=== PATIENT | female | born 1970 | race Caucasian/White ===

== ENCOUNTER 2016-04-17 19:21 | Emergency (ER) | payer SELFPAY ==
--- NOTE | 2016-04-17 20:09 | ED.PDOC ---
History of Present Illness - General Chief Complaint: Skin/Abrasion/Tear Stated Complaint: sore under her left arm Time Seen by Provider: 04/17/16 19:57 Source: patient Exam Limitations: no limitations - History of Present Illness Initial Comments: She stated swelling/knot for 2 years on her left armpit getting more red and painful the last 2 days Timing/Duration: other - 2 days Location: extremities Improving Factors: nothing Worsening Factors: movement Associated Symptoms: denies symptoms Allergies/Adverse Reactions: Allergies NO KNOWN ALLERGY Allergy (Verified 04/17/16 19:54) Home Medications: Ambulatory Orders NK [NK] 04/17/16 Review of Systems - Review of Systems Constitutional: States: no symptoms reported EENTM: States: no symptoms reported Respiratory: States: no symptoms reported Cardiology: States: no symptoms reported Gastrointestinal/Abdominal: States: no symptoms reported Genitourinary: States: no symptoms reported Musculoskeletal: States: no symptoms reported Skin: States: no symptoms reported Neurological: States: no symptoms reported Endocrine: States: no symptoms reported Hematologic/Lymphatic: States: no symptoms reported Past Medical History (General) - Patient Medical History Hx of HIV: Yes - eye lid Surgical History: no surgical history - Vaccination History Hx Tetanus, Diphtheria Vaccination: No Hx Influenza Vaccination: No Hx Pneumococcal Vaccination: No Immunizations Up to Date: No - Social History Hx Tobacco Use: Yes Hx Alcohol Use: Yes Hx Substance Use: No Hx Substance Use Treatment: No Hx Depression: No - Female History Patient is a Female of Child Bearing Age (10 -59 yrs old): No Patient : No Family Medical History - Family History Mother Family History: No Known Physical Exam - Physical Exam General Appearance: Alert, Comfortable, No apparent distress Eyes, Ears, Nose, Throat Exam: PERRL/EOMI, normal ENT inspection, TMs normal Neck: non-tender, full range of motion, normal inspection Cardiovascular/Chest: normal peripheral pulses, regular rate, rhythm, no edema Respiratory: chest non-tender, lungs clear, normal breath sounds Gastrointestinal/Abdominal: normal bowel sounds, non tender, soft Back Exam: normal inspection, no CVA tenderness Extremity: non-tender, normal inspection, no calf tenderness Skin Exam: warm/dry, normal color Skin Problem Location: other - left armpit Skin Character: erythema, lesion - left armpit, tenderness Lymphatic: no adenopathy Procedures - Incision and Drainage #1 Procedure and Prep: betadine prep, sterile drapes applied, sterile dressings applied, irrigated Blade Size: 11 Procedure Comments: after skin incision no pus noted but presence of cystic lesion came out and shown to the patient 1cm dm. Departure - Departure Clinical Impression: Infected epithelial inclusion cyst Time of Disposition: 20:54 Disposition: Discharge to Home or Self Care Condition: Good Departure Forms: ED Discharge - Pt. Copy, Patient Portal Self Enrollment Activity: may shower, no tub bath Home Medications: Ambulatory Orders NK [NK] 04/17/16 Additional Instructions: RETURN TO EMERGENCY ROOM NEEDED;change wound dressing every other day after applying polysporin ointment(OTC) until better
[2016-04-17] MEDS ORDERED: LIDOCAINE 1% W/ EPINEPHRINE 20 ML VIAL INJ ONE (20:19)
[2016-04-17] MEDS ORDERED: BACITRACIN-POLYMYXIN B OINT U/D PACK TOP ONE (20:35)
[2016-04-17] MEDS ORDERED: CEPHALEXIN 500MG CAP (ER DISP) PO ONE (20:54)
[2016-04-17] MEDS ORDERED: HYDROCOD/APAP 7.5/325 (ER DISP) #3 TAB PO ONE (20:55)
[2016-04-17 21:24] VITALS: BP 118/72; TEMP 98; O2SAT 98
== END 2016-04-17 21:23 | disposition home or self-care (01) ==
LOC: ER 19:21
DX: L72.0 Epidermal cyst (principal); Z87.891 Personal history of nicotine dependence

== ENCOUNTER → 2018-03-05 | Outpatient (CLI) | payer BC ==
--- NOTE | 2018-03-09 15:25 | MAM ---
EXAM DESCRIPTION: 3D Screening BILATERAL : Digital Mammography. CLINICAL HISTORY: 47 years Female SCREEN no complaints. No personal or family history of breast cancer. Childbirth. Hysterectomy 26 years ago. No HRT.. Lifetime risk of developing breast cancer (Tyrer-Cuzick model)(%): 7.3. COMPARISON: None available.. No prior reports available. TECHNIQUE: Bilateral CC and MLO projection full-field images, digital tomosynthesis mammographic technique. Bilateral digital 2-D full-field MLO images. CAD not available for tomosynthesis or 2-D images. FINDINGS: The breast parenchymal density pattern is: Heterogeneously dense breast tissue, which may obscure small masses. No skin thickening or nipple retraction. Bilateral solitary microcalcifications. Focal asymmetry in the upper outer quadrant of the middle third of the right breast associated with microcalcifications, approximately 5 cm from the nipple, 9:30 position. Focal asymmetry in the upper outer quadrant of the posterior third of the left breast, 6 cm from the nipple. Not associated with microcalcifications. IMPRESSION: BI-RADS CATEGORY: 0 - INCOMPLETE- Need additional imaging evaluation. FOLLOW-UP: Recall for additional imaging: Orthogonal digital full-field tomosynthesis bilaterally with bilateral targeted breast ultrasound if indicated by diagnostic images.. Written communication concerning the IMPRESSION and Follow-up, will be mailed to the patient and referring health care provider. Electronically signed by: Calos Barnett MD 03/09/2018 3:24 PM VENEER JOINTER
== END ==
LOC: MAMMO 14:22
PROVIDERS: ATTEND General Practice
DX: Z12.31 Encounter for screening mammogram for malignant neoplasm of breast (principal)

== ENCOUNTER → 2018-03-17 | Outpatient (CLI) | payer BC ==
--- NOTE | 2018-03-18 15:48 | MAM ---
EXAM DESCRIPTION: 3D Diagnostic, Bilateral: Digital Mammography CLINICAL HISTORY: 47 yearsFemaleABNORMAL MAMMO. Bilateral breast focal asymmetries.. COMPARISON: Bilateral screening digital breast tomosynthesis 03/05/2014. Bilateral targeted breast ultrasound following this examination.. TECHNIQUE: Bilateral LM projection full-field images, digital mammographic tomosynthesis technique. CAD not utilized. FINDINGS: The breast parenchymal density pattern is: Heterogeneously dense breast tissue, which may obscure small masses. No skin thickening or nipple retraction full-field LM tomosynthesis showing the focal asymmetry in the upper outer quadrant of the middle third of the left breast. Focal asymmetry in the right breast was not well seen. Bilateral solitary microcalcifications. Ultrasound: Scanning right breast upper outer quadrant. Mostly fibroglandular tissues with minimal fatty echotexture. Scanning at 9:00 position 2 cm from the nipple is a hypoechoic circumscribed mass wider than tall orientation. Minimal posterior enhancement features. 7.5 x 2.5 x 7.9 mm. Not vascular. Most likely a lymph node. A second mass in the same region measures 5.4 x 5.0 and less homogeneous. Wider than tall orientation with mixed posterior features. Nonvascular. This is likely a lymph node. At the 12:00 position is a heterogeneous cluster tissue wider than tall orientation circumscribed margins and no posterior features. Dimensions are 7.0 x 6.7 x 4.5 mm. Not vascular. May represent an island of fibroglandular tissue. No distinct cyst in the right breast region of interest. No parenchymal edema or large calcifications. No overlying skin changes or abnormal vascularity. Scanning of the left breast upper outer quadrant anterior half. Hypoechoic homogeneous circumscribed mass, measuring 6.0 x 2.9 x 1.3 cm. Wider than tall orientation mixed posterior features. Nonvascular. Smaller more hypoechoic mass measures 3.3 x 3.9 mm, circumscribed margins lateral than tall orientation and mixed posterior features. Nonvascular. No distinct cyst. No parenchymal edema or large calcifications. No overlying skin changes or abnormal vascularity. IMPRESSION: BI-RADS CATEGORY: 3 - PROBABLY BENIGN. Management: Short interval (6-month) targeted breast ultrasound continued surveillance bilateral digital diagnostic mammography. The FINDINGS and the FOLLOW-UP plan were reviewed in person with the patient after the examination. Written communication explaining the IMPRESSION and FOLLOW-UP will be mailed to the patient and referring care provider. Electronically signed by: Calos Barnett MD 03/18/2018 3:47 PM COMPUTER EQUIPMENT REPAIRER
--- NOTE | 2018-03-18 15:50 | US ---
EXAM DESCRIPTION: Breast,Bilateral: Ultrasound CLINICAL HISTORY: 47 yearsFemaleABNORMAL MAMMO COMPARISON: Digital diagnostic tomosynthesis bilateral breasts on the same visit. Bilateral screening digital breast tomosynthesis 03/05/2018. No prior breast ultrasound TECHNIQUE: Transcutaneous scanning of the bilateral breasts utilizing avery-scale and Doppler modes. Scanning performed by the software applications architect and Dr. Barnett. FINDINGS: Scanning right breast upper outer quadrant. Mostly fibroglandular tissues with minimal fatty echotexture. Scanning at 9:00 position 2 cm from the nipple is a hypoechoic circumscribed mass wider than tall orientation. Minimal posterior enhancement features. 7.5 x 2.5 x 7.9 mm. Not vascular. Most likely a lymph node. A second mass in the same region measures 5.4 x 5.0 and less homogeneous. Wider than tall orientation with mixed posterior features. Nonvascular. This is most likely a lymph node. At the 12:00 position is a heterogeneous cluster tissue wider than tall orientation circumscribed margins and no posterior features. Dimensions are 7.0 x 6.7 x 4.5 mm. Not vascular. May represent an island of fibroglandular tissue. No distinct cyst in the right breast region of interest. No parenchymal edema or large calcifications. No overlying skin changes or abnormal vascularity. Scanning of the left breast upper outer quadrant anterior half. Hypoechoic homogeneous circumscribed mass, measuring 6.0 x 2.9 x 1.3 cm. Wider than tall orientation mixed posterior features. Nonvascular. Smaller more hypoechoic mass measures 3.3 x 3.9 mm, circumscribed margins lateral than tall orientation and mixed posterior features. Nonvascular. No distinct cyst. No parenchymal edema or large calcifications. No overlying skin changes or abnormal vascularity. IMPRESSION: 1. Bi-Rads Category 3: Probably Benign Findings. 2. Please refer to digital diagnostic bilateral tomosynthesis and report on this visit. The FINDINGS and the FOLLOW-UP plan were reviewed in person with the patient after the examination. Written communication explaining the IMPRESSION and FOLLOW-UP will be mailed to the patient and referring care provider. Electronically signed by: Calos Barnett MD 03/18/2018 3:49 PM QUOTATION CLERK
== END ==
LOC: MAMMO 14:12
PROVIDERS: ATTEND General Practice
DX: R92.8 Other abnormal and inconclusive findings on diagnostic imaging of breast (principal)
CPT/HCPCS: 76641; 77066; G0279

== ENCOUNTER → 2018-08-19 | Outpatient (CLI) | payer BC ==
--- NOTE | 2018-08-20 10:56 | MAM ---
EXAM DESCRIPTION: 3D Diagnostic, Bilateral (accession [id number]), Breast,Bilateral (accession [id number]): Ultrasound CLINICAL HISTORY: 48 yearsFemaleSix month follow-up COMPARISON: Bilateral diagnostic digital tomosynthesis 03/17/2018. Bilateral targeted breast ultrasound on the same visit. TECHNIQUE: Bilateral LM and CC projection full-field images, digital mammographic tomosynthesis technique. CAD not available. . Transcutaneous scanning of the bilateral breasts utilizing avery-scale and Doppler modes. Scanning performed by the accounting reconciliation clerk and Dr. Barnett. FINDINGS: The breast parenchymal density pattern is: Heterogeneously dense breast tissue, which may obscure small masses. No skin thickening or nipple retraction bilateral coarse calcifications and microcalcifications. Bilateral focal asymmetry seen on the prior study are unchanged. No new focal, stellate mass or density, focal asymmetry , and no suspicious microcalcifications bilaterally. Ultrasound: Scanning of the bilateral breasts same locations as on the prior study. Mostly fibroglandular tissues. Minimal fatty tissues are seen. At the 9:00 sector, 2 cm from the nipple in the right breast is a elliptical hypoechoic solid mass with circumscribed margins not vascular. Wider than tall orientation and posterior acoustic enhancement. Surrounded by fibroglandular tissues. 5.5 x 5.3 mm. Probably a lymph node but not vascular. In the retroareolar breast at 900 position is similar appearing mass measuring 7.5 mm. Most likely a lymph node. A second mass at this location less homogeneous measures 7.5 x 7.1 mm with central echogenicity and minimal vascularity consistent with a lymph node. Scanning of the left breast with mostly fibroglandular tissues. In the 3:00 sector 2 cm from the nipple is an elliptical hypoechoic mass with circumscribed margins and partially echogenic center measuring 8.2 x 3.2 mm. Circumscribed margins, wider than tall orientation. Posterior acoustic enhancement mixed with shadowing, but not vascular. Most likely a lymph node. IMPRESSION: BI-RADS CATEGORY: 3 - PROBABLY BENIGN. Management: Short interval (6-month) bilateral diagnostic digital mammography and tomosynthesis including bilateral targeted breast ultrasound, on or after February 2019. The FINDINGS and the FOLLOW-UP plan were reviewed in person with the patient after the examination. Written communication explaining the IMPRESSION and FOLLOW-UP will be mailed to the patient and referring care provider. Electronically signed by: Calos Barnett MD 08/20/2018 10:54 AM CDT
== END ==
LOC: MAMMO 14:11
PROVIDERS: ATTEND General Practice
DX: R92.8 Other abnormal and inconclusive findings on diagnostic imaging of breast (principal)
CPT/HCPCS: 76641; 77066; G0279